=== PATIENT | female | born 1960 | race Caucasian/White ===

== ENCOUNTER → 2016-06-26 | Outpatient (CLI) | payer BC, OTHER ==
[~2016-06-26] MED LIST: AZEL0.055 OP; BUPR-83 PO; CLON0.5T3 PO; FOLI1TAB7 PO; LEVO75TA5 PO; MODA1TAB PO; VENL150C PO; VNTHFA/IN INH
[2016-06-26 12:57] LABS: ALT/SGPT 23 U/L (12-78); BASO % 0.9 %; BASO ABS # 0.07 K/uL (0-0.2); BLOOD UREA NITROGEN 15 mg/dl (7-18); BUN/CREATININE RATIO 22.5 (10-20); C-REACTIVE PROTEIN 0.32 mg/dl (0-0.29); CALCIUM 8.8 mg/dl (8.5-10.1); CARBON DIOXIDE 31 mmol/L (21-32); CHLORIDE 105 mmol/L (98-107); COMPLETE YES; CREATININE 0.68 mg/dl (0.60-1.20); EOS % 4.7 %; GLUCOSE 82 mg/dl (70-99); HEMATOCRIT 41.8 % (37-47); IG% 0.1 %; LYMPH % 27.8 %; LYMPH ABS # 2.08 K/uL (1.2-3.4); MEAN CELL VOLUME 89.1 fL (80-100); MEAN CORPUSCULAR HEMOGLOBIN 30.7 pg (25-34); MEAN CORPUSCULAR HGB CONC 34.4 g/dl (32-36); MEAN PLATELET VOLUME 11.2 fL (7.4-10.4); MONO % 7.4 %; NEUT % 59.1 %; PLATELET COUNT 204 K/uL (130-400); POTASSIUM 3.6 mmol/L (3.5-5.1); RED BLOOD COUNT 4.69 M/uL (4.2-5.4); SODIUM 142 mmol/L (136-145); WHITE BLOOD COUNT 7.47 K/uL (4.8-10.8)
[2016-06-26 13:07] LABS: ALB/GLOB RATIO 0.9 (0.9-2); ALKALINE PHOSPHATASE 99 U/L (45-117); AST/SGOT 21 U/L (15-37)
== END | disposition home or self-care (01) ==
LOC: C.LABMFLN 09:40
PROVIDERS: ATTEND Family Medicine
DX: G47.419 Narcolepsy without cataplexy (principal)

== ENCOUNTER → 2016-06-28 | Outpatient (CLI) | payer BC, OTHER ==
--- NOTE | 2016-06-28 13:57 | DIAGNOSTIC IMAGING REPORT ---
CHEST 2 VIEWS ROUTINE CLINICAL HISTORY: Shortness of breath, cough, dyspnea on exertion. Wheezing. COMPARISON STUDY: No previous studies for comparison. FINDINGS: There is a single spinal hussain. There is a scoliosis. The heart is normal in size. There is no failure. There is no focal pulmonary consolidation. No pleural effusions are visualized.[ IMPRESSION: No active disease in the chest. Electronically signed by: Kadeem Cowart M.D. 06/28/2016 1:56 PM Dictated Date/Time: 06/28/2016 1:55 PM
--- NOTE | 2016-07-05 09:42 | PULMONARY FUNCTION TEST ---
INTERPRETATION: The spirometry reveals mild to moderate obstruction with no change in the airflow with the use of albuterol.
== END | disposition home or self-care (01) ==
LOC: C.RC 13:29
PROVIDERS: ATTEND Family Medicine
DX: F17.200 Nicotine dependence, unspecified, uncomplicated (principal); R06.09 Other forms of dyspnea

== ENCOUNTER → 2016-07-02 | Outpatient (CLI) | payer BC, OTHER | END | disposition home or self-care (01) | LOC: C.LABMFLN 09:40 | PROVIDERS: ATTEND Family Medicine | DX: G47.419 Narcolepsy without cataplexy (principal) ==

== ENCOUNTER 2016-07-04 11:03 | Emergency (ER) | payer BC, OTHER ==
[~2016-07-04] VITALS: Ht 175.3 cm; Wt 81.3 kg
[2016-07-04 11:11] VITALS: TEMP 36.8; Ht 175.3 cm; Wt 81.3 kg
[2016-07-04] MEDS ORDERED: ASPIRIN 324 MG CHEW PO STA (11:28)
[2016-07-04] MEDS ORDERED: LEVO75TA5 PO (11:35)
[2016-07-04] MEDS ORDERED: CLON0.5T3 PO (11:35)
[2016-07-04] MEDS ORDERED: MODA1TAB PO (11:35)
[2016-07-04] MEDS ORDERED: VENL150C PO (11:35)
[2016-07-04] MEDS ORDERED: FOLI1TAB7 PO (11:35)
[2016-07-04] MEDS ORDERED: AZEL0.055 OP (11:45)
[2016-07-04 11:55] LABS: BASO % 1.1 %; BASO ABS # 0.08 K/uL (0-0.2); COMPLETE YES; EOS % 4.8 %; HEMATOCRIT 39.9 % (37-47); IG% 0.1 %; LYMPH % 27.1 %; LYMPH ABS # 1.96 K/uL (1.2-3.4); MEAN CELL VOLUME 86.9 fL (80-100); MEAN CORPUSCULAR HEMOGLOBIN 30.1 pg (25-34); MEAN CORPUSCULAR HGB CONC 34.6 g/dl (32-36); MEAN PLATELET VOLUME 10.8 fL (7.4-10.4); MONO % 7.6 %; NEUT % 59.3 %; PLATELET COUNT 207 K/uL (130-400); RED BLOOD COUNT 4.59 M/uL (4.2-5.4); WHITE BLOOD COUNT 7.22 K/uL (4.8-10.8)
[2016-07-04 12:05] LABS: INR 0.9 (0.9-1.1); PROTHROMBIN TIME (PATIENT) 9.9 SECONDS (9.0-12.0)
[2016-07-04 12:13] LABS: ALT/SGPT 19 U/L (12-78); BLOOD UREA NITROGEN 14 mg/dl (7-18); BUN/CREATININE RATIO 20.3 (10-20); CARBON DIOXIDE 30 mmol/L (21-32); CHLORIDE 106 mmol/L (98-107); GLUCOSE 83 mg/dl (70-99); POTASSIUM 3.7 mmol/L (3.5-5.1); SODIUM 142 mmol/L (136-145)
[2016-07-04] MEDS ORDERED: OPTIRAY 320 IV PRN (12:15)
[2016-07-04 12:16] LABS: ALKALINE PHOSPHATASE 95 U/L (45-117); AST/SGOT 18 U/L (15-37)
--- NOTE | 2016-07-04 12:53 | DIAGNOSTIC IMAGING REPORT ---
CT HEAD WITHOUT CONTRAST (CT) CLINICAL HISTORY: speech difficulty, dizziness COMPARISON STUDY: No previous studies for comparison. TECHNIQUE: Axial CT of the brain is performed from the vertex to the skull base. IV contrast was not administered for this examination. CT DOSE: 1153.77 mGy.cm FINDINGS: No intra or extra-axial mass lesions are visualized. There is no CT evidence of acute cortical infarction. There is no evidence of midline shift. There is no acute hemorrhage. No calvarial fractures are visualized. There is no evidence of pathologic ventricular dilatation. There is opacification of a single left-sided ethmoid air cell IMPRESSION: Opacified left ethmoid air cell. Otherwise normal noncontrast head CT for age. Electronically signed by: Kadeem Cowart M.D. 07/04/2016 12:52 PM Dictated Date/Time: 07/04/2016 12:51 PM
--- NOTE | 2016-07-04 12:56 | DIAGNOSTIC IMAGING REPORT ---
CHEST CTA for PULMONARY ARTERIES CT DOSE: HISTORY: Chest pain dyspnea TECHNIQUE: Multiaxial CT images of the chest were performed following the intravenous administration of contrast to evaluate the pulmonary arteries. Maximal intensity projection images were also obtained. COMPARISON STUDY: None. FINDINGS: There is a normal caliber thoracic aorta with no evidence for dissection. There is no evidence for pulmonary embolus. No pleural effusions. No pneumothorax. The liver and spleen are unremarkable. No mediastinal or hilar lymphadenopathy. The central airways are patent. The lungs are clear. Minimal bibasilar dependent atelectatic change. Postoperative changes to the thoracic spine. Minimal apical scarring bilaterally. IMPRESSION: No evidence for pulmonary embolus. Lungs are clear. Electronically signed by: Govind Hercules M.D. 07/04/2016 12:55 PM Dictated Date/Time: 07/04/2016 12:51 PM
--- NOTE | 2016-07-04 13:13 | EMERGENCY ROOM VISIT NOTE ---
History First contact with patient: 11:10 Chief Complaint: CHEST PAIN Stated Complaint: CHEST PAIN/PRESSURE, SOB, DIZZY Nursing Triage Summary: Pt came into today because she has been experincing chest pain for the past week. Pt states the pain is a squeezing and about a 4 out of 10 on pain scale. Pt has seen her PCP for the chest pain. Pt states that she just does not feel right. Within the last couple of days the pt has experinced pain in her jaw, shortness of breath with exertion and nausea. Pt also states that she has had several near syncopal episodes. History of Present Illness The patient is a 55 year old female who presents to the Emergency Room with complaints of chest pain times one week. The patient states that she has had chest pain and "doesn't feel right" for the past one week. She reports that the pain is in the left side of the chest and radiates into the back. Yesterday , the pain radiated into her neck and jaw bilaterally. She states the pain is not associated with exertion. She has a dull pain at baseline which worsens to a sharp pain at times. The patient does report shortness of breath associated with chest pain. She also reports feeling lightheaded this morning. She has not had any syncopal episodes. The patient was seen by her primary care provider one week ago because she "wasn't feeling right" and states that they did several blood tests. Her TSH was found to be 8.9 and she was started on levothyroxine. The patient also had testing for heavy metals in her urine, as she has a spinal rods for scoliosis. She also reports a history of narcolepsy and states that her primary care provider increased her dose of modafinil. The patient does report a history of angina and mitral valve prolapse with moderate regurgitation. She previously took Lopressor but this was stopped due to hypotension. She reports that she did complete cardiac rehabilitation. The patient reports a family history of heart disease, with her mother receiving a bypass in her 60s. She does report that her son and brother both have clotting disorders. The patient is a smoker. She denies any history of hypertension or high cholesterol. She denies any recent long travel or estrogen use. She denies any cough, fevers, recent illness, nausea or vomiting. Review of Systems A complete 10-point Review of Systems was discussed with the patient, with pertinent positives and negatives listed in the History of Present Illness. All remaining Review of Systems questions can be considered negative unless otherwise specified. Social History Smoking Status: Current Every Day Smoker Current/Historical Medications Scheduled Azelastine Hcl (Ophth) (Azelastine Hcl), 2 DROPS OP BID Clonazepam (Klonopin), 0.5 MG PO HS Folic Acid (Folvite), 1 MG PO DAILY Levothyroxine Sodium (Levothyroxine Sodium), 1 TAB PO DAILY Modafinil (Provigil), 200 MG PO DAILY Venlafaxine Hcl (Effexor Xr), 1 CAP PO DAILY Allergies Coded Allergies: Celecoxib (Unverified Adverse Reaction, Intermediate, NAUSEA/BECOMES FLUSH /DIZZY, 07/04/16) Codeine (Unverified Adverse Reaction, Intermediate, HYLUSONATES, 07/04/16) Naproxen (Unverified Adverse Reaction, Intermediate, UPSETS STOMACHE, ) Acetaminophen (Unverified Adverse Reaction, Unknown, UPSETS STOMACHE, ) Hydrocodone (Unverified Adverse Reaction, Unknown, UPSETS STOMACHE, 07/04/16 ) Physical Exam Vital Signs Date Time Temp Pulse Resp B/P Pulse Ox O2 Delivery O2 Flow Rate FiO2 07/04/16 16:41 99 20 142/88 97 07/04/16 13:02 59 20 133/93 99 Room Air 07/04/16 11:22 72 07/04/16 11:16 98 Room Air 07/04/16 11:11 36.8 68 18 159/96 99 Room Air Physical Exam VITALS: Vitals are noted on the nurse's note and reviewed by myself. Vital signs stable. GENERAL: This is a 55-year-old female, in no acute distress, nondiaphoretic, well-developed well-nourished. SKIN: The skin was without rashes, erythema, edema, or bruising. There is no tenting of the skin. Capillary reflex less than 2 seconds. HEAD: Normocephalic atraumatic. EARS: External auditory canals clear, tympanic membranes pearly mansfield without erythema or effusion bilaterally. EYES: Pupils equal round and reactive to light and accommodation. NOSE: Patent, turbinates without inflammation or discharge. MOUTH: Mucous membranes moist. Tonsils are not enlarged. Pharynx without erythema or exudate. NECK: Supple without nuchal rigidity. No lymphadenopathy. HEART: Regular rate and rhythm without murmurs gallops or rubs. LUNGS: Clear to auscultation bilaterally without wheezes, rales or rhonchi. No retractions or accessory muscle use. ABDOMEN: Positive bowel sounds x 4. Soft, nontender, without masses or organomegaly. NEURO: Patient was alert and oriented to person place and time. Medical Decision & Procedures ER Provider Diagnostic Interpretation: CHEST ONE VIEW PORTABLE FINDINGS: There is a thoracic scoliosis. There is a spinal hussain present. There is no failure. There is no focal pulmonary consolidation. The heart is within normal limits size. There is no pneumothorax. No pleural effusions are visualized.[ IMPRESSION: No active disease in the chest. CT HEAD WITHOUT CONTRAST (CT) FINDINGS: No intra or extra-axial mass lesions are visualized. There is no CT evidence of acute cortical infarction. There is no evidence of midline shift. There is no acute hemorrhage. No calvarial fractures are visualized. There is no evidence of pathologic ventricular dilatation. There is opacification of a single left-sided ethmoid air cell IMPRESSION: Opacified left ethmoid air cell. Otherwise normal noncontrast head CT for age. CHEST CTA for PULMONARY ARTERIES FINDINGS: There is a normal caliber thoracic aorta with no evidence for dissection. There is no evidence for pulmonary embolus. No pleural effusions. No pneumothorax. The liver and spleen are unremarkable. No mediastinal or hilar lymphadenopathy. The central airways are patent. The lungs are clear. Minimal bibasilar dependent atelectatic change. Postoperative changes to the thoracic spine. Minimal apical scarring bilaterally. IMPRESSION: No evidence for pulmonary embolus. Lungs are clear. Laboratory Results 07/04/16 11:40 Red Blood Count 4.59, Mean Corpuscular Volume 86.9, Mean Corpuscular Hemoglobin 30.1, Mean Corpuscular Hemoglobin Concent 34.6, Mean Platelet Volume 10.8, Neutrophils (%) (Auto) 59.3, Lymphocytes (%) (Auto) 27.1, Monocytes (%) (Auto) 7.6, Eosinophils (%) (Auto) 4.8, Basophils (%) (Auto) 1.1, Neutrophils # (Auto) 4.27, Lymphocytes # (Auto) 1.96, Monocytes # (Auto) 0.55, Eosinophils # (Auto) 0.35, Basophils # (Auto) 0.08 07/04/16 11:40 Test 07/04/16 11:40 07/04/16 11:45 White Blood Count 7.22 K/uL (4.8-10.8) Red Blood Count 4.59 M/uL (4.2-5.4) Hemoglobin 13.8 g/dL (12.0-16.0) Hematocrit 39.9 % (37-47) Mean Corpuscular Volume 86.9 fL (80-100) Mean Corpuscular Hemoglobin 30.1 pg (25-34) Mean Corpuscular Hemoglobin Concent 34.6 g/dl (32-36) Platelet Count 207 K/uL (130-400) Mean Platelet Volume 10.8 fL (7.4-10.4) Neutrophils (%) (Auto) 59.3 % Lymphocytes (%) (Auto) 27.1 % Monocytes (%) (Auto) 7.6 % Eosinophils (%) (Auto) 4.8 % Basophils (%) (Auto) 1.1 % Neutrophils # (Auto) 4.27 K/uL (1.4-6.5) Lymphocytes # (Auto) 1.96 K/uL (1.2-3.4) Monocytes # (Auto) 0.55 K/uL (0.11-0.59) Eosinophils # (Auto) 0.35 K/uL (0-0.5) Basophils # (Auto) 0.08 K/uL (0-0.2) RDW Standard Deviation 43.9 fL (36.4-46.3) RDW Coefficient of Variation 13.8 % (11.5-14.5) Immature Granulocyte % (Auto) 0.1 % Immature Granulocyte # (Auto) 0.01 K/uL (0.00-0.02) Prothrombin Time 9.9 SECONDS (9.0-12.0) Prothromb Time International Ratio 0.9 (0.9-1.1) Activated Partial Thromboplast Time 25.9 SECONDS (21.0-31.0) Partial Thromboplastin Ratio 1.0 Anion Gap 6.0 mmol/L (3-11) Est Creatinine Clear Calc Drug Dose 104.8 ml/min Estimated GFR () 113.8 Estimated GFR (Non- 98.2 BUN/Creatinine Ratio 20.3 (10-20) Calcium Level 9.0 mg/dl (8.5-10.1) Total Bilirubin 0.3 mg/dl (0.2-1) Direct Bilirubin < 0.1 mg/dl (0-0.2) Aspartate Amino Transf (AST/SGOT) 18 U/L (15-37) Alanine Aminotransferase (ALT/SGPT) 19 U/L (12-78) Alkaline Phosphatase 95 U/L (45-117) Total Protein 6.3 gm/dl (6.4-8.2) Albumin 3.1 gm/dl (3.4-5.0) Bedside D-Dimer > 450 ng/mlFEU (0-450) Bedside Troponin I 0.000 ng/ml (0-0.045) Medications Administered Medications (Trade) Dose Ordered Sig/Lindsey Route Start Time Stop Time Status Last Admin Dose Admin Aspirin (Aspirin Chew) 324 mg NOW STAT PO 07/04/16 11:28 07/04/16 11:31 DC 07/04/16 11:58 324 MG ECG Indication: chest pain Rate (beats per minute): 65 Rhythm: normal sinus Findings: no acute ischemic change, no ectopy Comparison ECG Date: no prior available Medical Decision Differential diagnosis includes acute coronary syndrome, pulmonary embolism, pneumothorax, pericarditis, myocarditis, endocarditis, anxiety, musculoskeletal pain, GERD, costochondritis, among others. The patient was evaluated as above. Labs were drawn and IV access was obtained. Imaging studies were performed and read by radiology as above. The patient was medicated with 324 mg aspirin. The patient was reassessed multiple times during their stay in the emergency department and remained in stable condition. The patient is a 55-year-old female who presents today complaining of intermittent chest pain. Labs revealed no leukocytosis, anemia or concerning electrolyte abnormalities. Troponin was not elevated. D-dimer was found to be elevated. CT of the chest was performed and showed no evidence of pulmonary embolism. CT of the head was also performed given the patient's concern about slow speech and feeling foggy. This was also negative for any acute findings. EKG showed a normal sinus rhythm without evidence of ischemia. I did contact Dr. Dolly Peralta cardiology, who agreed to perform a stress test. This was performed with no concerning findings. The patient's symptoms are likely secondary to her recently diagnosed thyroid disorder, but she will need close follow-up with her primary care provider. She was instructed to return if she has any worsening of her condition or new/concerning symptoms. Based on the patient's presentation, lab results, and imaging studies, I feel the patient is stable for outpatient treatment. The patient's case was reviewed with Dr. Ruiz, ED attending physician, who agreed with my assessment and treatment plan. Discharge instructions were reviewed with the patient. The patient verbalized understanding of my assessment and treatment plan and was discharged home in good condition. Impression Primary Impression: Precordial chest pain Departure Information Dispostion Home / Self-Care Condition GOOD Referrals Jose Son M.D. (PCP) Patient Instructions My [facility] Additional Instructions Call the primary care provider to schedule a follow-up appointment within 3-4 days for further evaluation. Continue your home medications as prescribed. Rest and drink plenty of fluids. Return to the emergency department with any new/concerning symptoms.
--- NOTE | 2016-07-04 13:16 | DIAGNOSTIC IMAGING REPORT ---
CHEST ONE VIEW PORTABLE CLINICAL HISTORY: Atypical chest pain and pressure COMPARISON STUDY: 06/28/2016 FINDINGS: There is a thoracic scoliosis. There is a spinal hussain present. There is no failure. There is no focal pulmonary consolidation. The heart is within normal limits size. There is no pneumothorax. No pleural effusions are visualized.[ IMPRESSION: No active disease in the chest. Electronically signed by: Kadeem Cowart M.D. 07/04/2016 1:14 PM Dictated Date/Time: 07/04/2016 1:14 PM
[2016-07-04 16:41] VITALS: BP 142/88; PULSE 99; O2SAT 97
--- NOTE | 2016-07-04 16:51 | EXERCISE STRESS ECHO ---
*NOTICE TO RECEIVING LIBERTARIAN AGENCY This information is strictly Confidential and protected under [place] law. [place] law prohibits you from making any further disclosure of this information unless further disclosure is expressly permitted by the written consent of the person to whom it pertains or is authorized by law. A general authorization for the release of medical or other information is not sufficient for this purpose. Hospital accepts no responsibility if the information is made available to any other person, INCLUDING THE PATIENT. Interpretation Summary * Name: JEFE ESPINOZA Study Date: 07/04/2016 02:35 PM BP: 129/83 mmHg * Patient Location: [facility] HR: 61 * : 1960 (M/d/yyyy) Gender: Female Height: 69 in * Age: 55 yrs Ethnicity: [place] Weight: 179 lb * Ordering Physician: Claudia Leblanc * Referring Physician: Self, Referred * Performed By: Leanne Mendoza RCS * * Reason For Study: CHEST PAIN * BSA: 2.0 m2 * -- Conclusions -- * Normal stress echocardiogram at 10.1 METS and a peak heart rate of 92% predicted maximum. * No exercise induced chest pain. * No ECG changes. * Baseline echocardiogram notes normal left ventricular systolic function and no wall motion abnormalities. Procedure Details * ECHOEX, CPT #42102 Left Ventricle * Left ventricular systolic function is normal. * Resting wall motion: Normal. Stress wall motion: Appropriate increase in Left ventricular systolic function and decrease in cavity size. No stress induced segmental wall motion abnormalities. Stress Parameters * Normal baseline electrocardiogram. * Stress ECG: No ST changes. No arrhythmias. * The stress portion of this study was personally supervised by the undersigned interpreting physician. * Rest heart rate was '61' BPM. * Rest blood pressure was '129/83' * Maximum heart rate achieved was 153 bpm. * Maximum heart rate was 92 % of maximum age-predicted heart rate. * Maximum blood pressure was '213/120' * Total exercise time was '08:26' * Maximum exercise MET level achieved was '10.10' METS * Maximum treadmill speed was '3.40' miles per hour. * Maximum treadmill elevation was '14.00'% grade.
[2016-09-11] MEDS ORDERED: BUPR-83 PO (07:42)
[2016-09-11] MEDS ORDERED: VNTHFA/IN INH (07:47)
== END 2016-07-04 16:42 | disposition home or self-care (01) ==
LOC: C.EDB 11:05 → C.EDC 16:42
DX: R07.9 Chest pain, unspecified (principal); F17.200 Nicotine dependence, unspecified, uncomplicated

== ENCOUNTER → 2016-07-30 | Outpatient (CLI) | payer BC, OTHER ==
--- NOTE | 2016-08-01 08:26 | MAMMOGRAPHY REPORT ---
BILATERAL DIGITAL SCREENING MAMMOGRAM TOMOSYNTHESIS WITH CAD: 07/30/2016 CLINICAL HISTORY: Routine screening. TECHNIQUE: Breast tomosynthesis in addition to standard 2D mammography was performed. Current study was also evaluated with a Computer Aided Detection (CAD) system. COMPARISON: Comparison is made to exams dated: 11/08/2014 mammogram, 10/09/2013 mammogram, 08/19/2012 mammogram, and 08/08/2012 mammogram - [facility]. BREAST COMPOSITION: There are scattered areas of fibroglandular density in both breasts. FINDINGS: There is a stable metallic biopsy marker in the upper outer quadrant of the right breast. Stable clustered micro-calcifications in the right upper outer quadrant and left anterior breast. No suspicious mass, architectural distortion or cluster of new, suspicious microcalcifications is s een. IMPRESSION: ACR BI-RADS CATEGORY 1: NEGATIVE There is no mammographic evidence of malignancy. A 1 year screening mammogram is recommended. The p atient will receive written notification of the results. Approximately 10% of breast cancers are not detected with mammography. A negative mammographic repor t should not delay biopsy if a clinically suggestive mass is present. Tiff Elizondo M.D. ay/:07/31/2016 19:00:51 [employer]: Tammy HILTON(R)(M), [facility] letter sent: Normal 1/2 BI-RADS Code: ACR BI-RADS Category 1: Negative
== END | disposition home or self-care (01) ==
LOC: C.MAMM 08:55
PROVIDERS: ATTEND Psychiatry & Neurology Child & Adolescent Psychiatry
DX: Z12.31 Encounter for screening mammogram for malignant neoplasm of breast (principal)

== ENCOUNTER → 2016-09-12 | Day surgery (SDC) | payer BC, OTHER ==
[2016-09-11 07:43] VITALS: Ht 175.3 cm; Wt 81.8 kg
[~2016-09-12] VITALS: Ht 175.3 cm; Wt 81.8 kg
[~2016-09-12] MED LIST changes: -AZEL0.055 OP; +LIDOCAINE HCL 2% 2 ML VIAL (20MG/ML) ONE; +PROPOFOL IV EMULSION 10 MG/ML 20 ML VIAL IV ONE
--- NOTE | 2016-09-12 11:48 | Endo History and Physical ---
History & Physical Date of Service: Sep 12, 2016. Chief Complaint: Abdominal pain and constipation Referring Physician: Dr Son History of Present Illness 56 yo CF who presents for colonoscopy secondary to abdominal pain and constipation. Past Surgical History Hx Cardiac Surgery: Yes (CARDIAC CATH NO STENTS-10 YRS AGO) Hx Internal Defibrillator: No Hx Pacemaker: No Hx Abdominal Surgery: Yes (HYSTERECTOMY,HERNIA) Hx of Implantable Prosthesis: No Hx Post-Op Nausea and Vomiting: No Hx Cancer Surgery: Yes (CONE CERVICAL LASER) Hx Orthopedic: Yes (GOINS RYNE BACK) Hx Urinary Tract Surgery: No Family History Colon CA, Esophogeal CA, Polyp Social History Smoking Status: Current Every Day Smoker Hx Substance Use: No Hx Alcohol Use: Yes (RARE BEER) Allergies Coded Allergies: Celecoxib (Unverified Adverse Reaction, Intermediate, NAUSEA/BECOMES FLUSH /DIZZY, 09/11/16) Codeine (Unverified Adverse Reaction, Intermediate, HALLUCINATIONS, ) Naproxen (Unverified Adverse Reaction, Intermediate, UPSETS STOMACHE, 09/11) Acetaminophen (Unverified Adverse Reaction, Unknown, UPSETS STOMACHE, 09/11) Hydrocodone (Unverified Adverse Reaction, Unknown, UPSETS STOMACHE, ) Current Medications Reported Home Medications Medications Dose Route/Sig Max Daily Dose Days Date Category Ventolin Hfa (Albuterol) 200 Puffs/75326 Mcg Aers 2-4 Puffs INH Q6H PRN 09/11/16 Reported Wellbutrin (Bupropion HCl) 100 Mg Tab 100 Mg PO QPM 09/11/16 Reported Klonopin (Clonazepam) 0.5 Mg Tab 0.5 Mg PO HS PRN 07/04/16 Reported Provigil (Modafinil) 200 Mg Tab 200 Mg PO NOON 07/04/16 Reported Levothyroxine Sodium 75 Mcg Tab 1 Tab PO QAM 90 07/04/16 Reported Folvite (Folic Acid) 1 Mg Tab 1 Mg PO QAM 07/04/16 Reported Effexor Xr (Venlafaxine Hcl) 150 Mg Cap 1 Cap PO QAM 30 07/04/16 Reported Vital Signs Weight (Kilograms): 81.82 Height (Feet): 5 Height (Inches): 9 Date Time Temp Pulse Resp B/P (MAP) Pulse Ox O2 Delivery O2 Flow Rate FiO2 09/12/16 11:38 36.6 85 20 138/81 (100) 96 Room Air Physical Exam General Appearance: WD/WN, no apparent distress Respiratory/Chest: Auscultation: breath sounds normal Cardiovascular: Heart Auscultation: RRR Abdomen: Bowel Sounds: normal Inspection & Palpation: soft, non-distended, no tenderness, guarding & rebound Assessment and Plan Assessment: 56 yo CF who presents for colonoscopy secondary to abdominal pain and constipation. Plan: Proceed with colonoscopy.
--- NOTE | 2016-09-12 12:23 | GI REPORT ---
Procedure Date: 09/12/2016 11:48 AM Procedure: Colonoscopy Indications: Generalized abdominal pain, Constipation Medicines: Monitored Anesthesia Care Complications: No immediate complications. Estimated Blood Loss: Estimated blood loss: none. Procedure: Pre-Anesthesia Assessment: - Prior to the procedure, a History and Physical was performed, and patient medications and allergies were reviewed. The patient's tolerance of previous anesthesia was also reviewed. The risks and benefits of the procedure and the sedation options and risks were discussed with the patient. All questions were answered, and informed consent was obtained. Prior Anticoagulants: The patient has taken no previous anticoagulant or antiplatelet agents. ASA Grade Assessment: II - A patient with mild systemic disease. After reviewing the risks and benefits, the patient was deemed in satisfactory condition to undergo the procedure. After I obtained informed consent, the scope was passed under direct vision. Throughout the procedure, the patient's blood pressure, pulse, and oxygen saturations were monitored continuously. The Scope was introduced through the anus and advanced to the terminal ileum. The colonoscopy was performed without difficulty. The patient tolerated the procedure well. The quality of the bowel preparation was good. The terminal ileum, ileocecal valve, appendiceal orifice, and rectum were photographed. Findings: Three sessile polyps were found in the descending colon and in the ascending colon. The polyps were 4 to 6 mm in size. These polyps were removed with a hot snare. Resection and retrieval were complete. Multiple small-mouthed diverticula were found in the sigmoid colon. Non-bleeding internal hemorrhoids were found during retroflexion. The hemorrhoids were small. Impression: - Three 4 to 6 mm polyps in the descending colon and in the ascending colon, removed with a hot snare. Resected and retrieved. - Diverticulosis in the sigmoid colon. - Non-bleeding internal hemorrhoids. Recommendation: - Resume previous diet. - Continue present medications. - Repeat colonoscopy for surveillance based on pathology results. - Return to primary care physician as previously scheduled. Bright Velasquez, DO 09/12/2016 12:22:43 PM This report has been signed electronically. Note Initiated On: 09/12/2016 11:48 AM I attest to the content of the Intraoperative Record and orders documented therein, exceptions below
--- NOTE | 2016-09-12 12:23 | Discharge Instructions ---
Endoscopy Patient Instructions Date / Procedure(s) Performed Sep 12, 2016. Colonoscopy Allergy Information Coded Allergies: Celecoxib (Unverified Adverse Reaction, Intermediate, NAUSEA/BECOMES FLUSH /DIZZY, 09/11/16) Codeine (Unverified Adverse Reaction, Intermediate, HALLUCINATIONS, ) Naproxen (Unverified Adverse Reaction, Intermediate, UPSETS STOMACHE, 09/11) Acetaminophen (Unverified Adverse Reaction, Unknown, UPSETS STOMACHE, 09/11) Hydrocodone (Unverified Adverse Reaction, Unknown, UPSETS STOMACHE, ) Discharge Date / Findings Sep 12, 2016. Colon polyps Diverticulosis Internal hemorrhoids Provider Instructions Activity Restrictions - No exercising or heavy lifting for 24 hours. - Do not drink alcohol the day of the procedure. - Do not drive a car or operate machinery until the day after the procedure. - Do not make any important decisions or sign important papers in 24 hours after the procedure. Following Day: - Return to full activity which may include returning to work/school. Diet Start your diet with liquids and light foods (jello, soup, juice, toast). Then eat your usual diet if not nauseated. Treatment For Common After Affects For mild abdominal pain, bloating, or excessive gas: - Rest - Eat lightly - Lie on right side Follow-Up Information Follow-up with Dr Son as scheduled Anesthesia Information What You Should Know You have had a procedure that required some medicine to reduce anxiety and discomfort. This treatment is called moderate sedation. After receiving the treatment, you may be sleepy, but you will be able to breathe on your own. The effects of the treatment may last for several hours. Follow these instructions along with Activity/Diet recommendations noted above: * Do NOT do anything where dizziness or clumsiness would be dangerous. * Rest quietly at home today, then you can be up and about tomorrow. * Have a responsible person stay with you the rest of today. * You may have had an I.V. today. If so, you may take the dressing off later today. Recommendations Call your doctor if: * Trouble breathing * Continuous vomiting for more than 24 hours * Temperature above 101 degrees * Severe abdominal pain or bloating * Pain not relieved by pain medicine ordered * There is increased drainage or redness from any incision * A large amount of rectal bleeding greater than 2-3 tablespoons. (If you had a polyp/s removed or have hemorrhoids, a small amount of blood - from the rectum is to be expected.) * You have any unanswered questions or concerns. IN THE EVENT OF A SERIOUS EMERGENCY, GO TO THE NEAREST EMERGENCY ROOM Your discharge instructions were prepared by provider Bright Velasquez. Patient Instructions Signature Page Sierra Kincaid Patient (or Guardian) Signature/Date: I have read and understand the instructions given to me by my caregivers. Caregiver/RN/Doctor Signature/Date: The above-named patient and/or guardian has received patient instructions on this date. + Original Patient Signature Page (only) stays with chart. Please make copy for patient.
--- NOTE | 2016-09-12 12:36 | Anesthesiology Progress Note ---
Anesthesia Post Op Note Date & Time Sep 12, 2016 at 12:36 Vital Signs Vital Signs Past 12 Hours Date Time Temp Pulse Resp B/P (MAP) Pulse Ox O2 Delivery O2 Flow Rate FiO2 09/12/16 12:20 81 16 117/73 (88) 96 Room Air 09/12/16 11:38 36.6 85 20 138/81 (100) 96 Room Air Notes Mental Status: alert / awake / arousable, participated in evaluation Pt Amnestic to Procedure: Yes Nausea / Vomiting: adequately controlled Pain: adequately controlled Airway Patency, RR, SpO2: stable & adequate BP & HR: stable & adequate Hydration State: stable & adequate Anesthetic Complications: no major complications apparent
[2016-09-12 12:50] VITALS: BP 136/85; PULSE 68; O2SAT 98
== END | disposition home or self-care (01) ==
LOC: C.GI 11:17
PROVIDERS: ATTEND Internal Medicine
DX: R10.9 Unspecified abdominal pain (principal); D12.2 Benign neoplasm of ascending colon; D12.4 Benign neoplasm of descending colon; K59.00 Constipation, unspecified; Z80.0 Family history of malignant neoplasm of digestive organs; F17.200 Nicotine dependence, unspecified, uncomplicated; K64.8 Other hemorrhoids; K57.30 Diverticulosis of large intestine without perforation or abscess without bleeding

== ENCOUNTER → 2016-12-05 | Outpatient (CLI) | payer BC, OTHER ==
[~2016-12-05] MED LIST changes: -LIDOCAINE HCL 2% 2 ML VIAL (20MG/ML) ONE; -PROPOFOL IV EMULSION 10 MG/ML 20 ML VIAL IV ONE
[2016-12-05 14:21] LABS: THYROID STIMULATING HORMONE 2.02 uIu/ml (0.300-4.500)
== END | disposition home or self-care (01) ==
LOC: C.LABMFLN 09:04
PROVIDERS: ATTEND Family Medicine
DX: E03.9 Hypothyroidism, unspecified (principal)

== ENCOUNTER → 2017-01-03 | Outpatient (CLI) | payer BC, OTHER | END | disposition home or self-care (01) | LOC: C.LABMFLN 16:13 | PROVIDERS: ATTEND Physician Assistant | DX: J02.9 Acute pharyngitis, unspecified (principal) ==

== ENCOUNTER → 2017-03-06 | Outpatient (CLI) | payer BC, OTHER ==
[2017-03-06 13:14] LABS: BLOOD UREA NITROGEN 11 mg/dl (7-18); BUN/CREATININE RATIO 14.9 (10-20); CALCIUM 9.5 mg/dl (8.5-10.1); CARBON DIOXIDE 30 mmol/L (21-32); CHLORIDE 103 mmol/L (98-107); CREATININE 0.74 mg/dl (0.60-1.20); GLUCOSE 85 mg/dl (70-99); SODIUM 138 mmol/L (136-145)
== END | disposition home or self-care (01) ==
LOC: C.LABMFLN 08:51
PROVIDERS: ATTEND Family Medicine
DX: Z00.00 Encounter for general adult medical examination without abnormal findings (principal); Z11.59 Encounter for screening for other viral diseases; E03.9 Hypothyroidism, unspecified; I10 Essential (primary) hypertension

== ENCOUNTER → 2017-11-13 | Outpatient (CLI) | payer BC, OTHER ==
[~2017-11-13] MED LIST changes: +ACET-1256 PO; -CLON0.5T3 PO; +CLON0.5T9 PO; +FLUC200T PO; +FLUT0.15 INTNAS; -FOLI1TAB7 PO; +LISI-729 PO; +METO-157 PO; +MICO2CRE48 TOP; +PRLSR20 PO; +SODI1TAB17 PO; -VENL150C PO; +VENL150C2 PO
== END | disposition home or self-care (01) ==
LOC: C.PAPS 18:16
PROVIDERS: ATTEND Family Medicine
DX: Z01.419 Encounter for gynecological examination (general) (routine) without abnormal findings (principal); Z11.51 Encounter for screening for human papillomavirus (HPV); R87.616 Satisfactory cervical smear but lacking transformation zone; L29.2 Pruritus vulvae

== ENCOUNTER 2020-07-20 07:05 | Inpatient (IN) ==
--- NOTE | 2020-07-13 09:33 | Anesthesiology Consultation ---
Date of Service July 13, 2020 Assessment & Plan Chart Review Chart Review: Acceptable Risk for Surgery and Patient NOT seen in Pre Admission Testing Consults Requested none History Surgery Operation Date: 07/20/20 08:45 Proposed Procedures p Laparoscopic Partial Colectomy - Luis Fernando Berger DO, FACS Height/Weight Height: 5 ft 8 in Weight: 79.832 kg Allergies Allergy/AdvReac Type Severity Reaction Status Date / Time bupropion [From Wellbutrin] Allergy Intermediate agressive Verified 07/12/20 14:25 with high dose ropinirole Allergy Mild weakness/na Verified 07/12/20 14:25 usea tramadol Allergy Mild Nausea Verified 07/12/20 14:25 celecoxib AdvReac Intermediate NAUSEA/BECOMES Verified 07/12/20 14:25 FLUSH/DIZZY codeine AdvReac Intermediate HALLUCINATI Verified 07/12/20 14:25 ONS naproxen AdvReac Intermediate UPSETS Verified 07/12/20 14:25 STOMACH hydrocodone AdvReac Unknown UPSETS Verified 07/12/20 14:25 STOMACH Medications Home Medications Medication Instructions Recorded Confirmed Last Taken alendronate 70 mg PO WK 05/16/19 07/12/20 Unknown calcium carbonate-vitamin D3 1 tab PO QPM 05/16/19 07/12/20 07/09/20 17:00 [Calcium 600 + D(3)] albuterol sulfate 90 mcg/actuation 2 puff INH Q4H PRN #18 gm 02/23/20 07/12/20 07/05/20 aerosol inhaler bupropion HCl 100 mg PO QAM 06/30/20 07/12/20 07/10/20 08:00 cholecalciferol (vitamin D3) 100 mcg PO QAM 06/30/20 07/12/20 07/10/20 08:00 levothyroxine 75 mcg PO QAM 06/30/20 07/12/20 07/11/20 04:30 modafinil 100 mg PO QAM 06/30/20 07/12/20 07/10/20 08:00 venlafaxine 75 mg PO QAM 06/30/20 07/12/20 07/05/20 venlafaxine 150 mg PO QAM 06/30/20 07/12/20 07/05/20 erythromycin 500 mg tablet 500 mg PO TID #3 tab 07/12/20 07/12/20 Unknown metronidazole 500 mg tablet 500 mg PO TID #3 tab 07/12/20 07/12/20 Unknown Past Medical History Medical History Abdominal bloating Allergic rhinitis Anxiety Asthma SOB at times, inhaler prn Blood in stool Chronic back pain Current smoker Depression Diverticulosis Family history of colon cancer History of bronchitis Hypothyroidism Mitral valve prolapse syndrome 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, follows with PCP Myalgia Obstructive sleep apnea no device after sx Post-traumatic stress disorder Psoriasis of scalp Restless legs syndrome Sleep walking and eating Vitamin D deficiency Past Family History Family History Grandmother Myocardial infarction Heart disease Uncle Alcoholism Alcoholic cirrhosis Family hx of colon cancer Colorectal cancer Grandfather Alcoholism Lung disease Brother Cocaine dependence Depression Sister Depression Cancer Mother Laryngeal cancer Kidney disease Hypertension Family history of esophageal cancer Cancer Heart disease Father Lung cancer Family history of rectal cancer Rectosigmoid junction carcinoma Uncle Family hx of colon cancer Aunt Breast cancer Other No family history of adverse response to anesthesia Past Surgical History Surgical History Fusion of spine from neck to lumbar in 1977 History of bilateral tubal ligation History of breast biopsy benign History of cardiac cath roughly 25yrs ago--at [facility]--no stents History of colonoscopy with polypectomy History of dilatation and curettage History of endometrial ablation History of hip surgery removed bone from left to put into back for back sx History of hysterectomy (2009) History of inguinal hernia repair (2009) right History of mandibular surgery (2018) Dr. Black History of strabismus surgery History of tonsillectomy and adenoidectomy History of wisdom tooth extraction Social History Smoking Status: Current every day smoker tobacco type: cigarettes Smoking cigarettes per day: 1/2 ppd and trying to quit Do You Dip or Chew Tobacco: No Hx Alcohol Use: No Alcohol type: beer alcohol intake frequency: other Hx Substance Use: No substance use type: does not use Lab Results Anesthesia Preop Results Results Anesthesia Widget: WBC 11.21 K/uL (4.8-10.8) H 07/11/20 Hgb 14.5 g/dL (12.0-16.0) 07/11/20 Hct 42.2 % (37-47) 07/11/20 Plt 315 K/uL (130-400) 07/11/20 Na 142 mmol/L (136-145) 07/11/20 K 3.5 mmol/L (3.5-5.1) 07/11/20 Cl 108 mmol/L (98-107) H 07/11/20 CO2 28 mmol/L (21-32) 07/11/20 BUN 13 mg/dl (7-18) 07/11/20 Creat 0.74 mg/dl (0.6-1.2) 07/11/20 Glucose Level 85 mg/dl (70-99) 05/24/20 Fasting Glucose 105 mg/dl (70-99) H 07/11/20 Urine Color Yellow 05/24/20 Urine Appearance Clear (Clear) 05/24/20 Urine pH 6.5 (4.5-7.5) 05/24/20 Urine Specific [place] 1.007 (1.000-1.030) 05/24/20 Urine Protein Negative (Negative) 05/24/20 Urine Glucose (UA) Negative (Negative) 05/24/20 Urine Ketones Negative (Negative) 05/24/20 Urine Blood 1+ (Negative) H 05/24/20 Urine Nitrite Negative (Negative) 05/24/20 Urine Bilirubin Negative (Negative) 05/24/20 Urine Urobilinogen Negative (Negative) 05/24/20 Urine Leukocyte Esterase Negative (Negative) 05/24/20 Urine WBC (Auto) 0 /hpf (0-5) 05/24/20 Urine RBC (Auto) 0-4 /hpf (0-4) 05/24/20 Urine Hyaline Casts (Auto) 0 /lpf (0-5) 05/24/20 Urine Epithelial Cells (Auto) 5-10 /lpf (0-5) H 05/24/20 Urine Bacteria (Auto) Negative (Negative) 05/24/20 Testing Electrocardiogram Date: 07/12/20 Findings: + NSR @ Chest X-Ray Date: 07/12/20 Findings: + NAD emphysema
[~2020-07-20 07:05] MED LIST changes: -ACET-1256 PO; -BUPR-83 PO; -CLON0.5T9 PO; -FLUC200T PO; -FLUT0.15 INTNAS; +LACTATED RINGER'S 1,000 ML IV SCH; -LEVO75TA5 PO; -LISI-729 PO; -METO-157 PO; -MICO2CRE48 TOP; -MODA1TAB PO; -PRLSR20 PO; -SODI1TAB17 PO; -VENL150C2 PO; -VNTHFA/IN INH; +cefOXitin 2,000 MG in DEXTROSE 5% 50 ML IV SCH
[2020-07-20] MEDS ORDERED: LIDOCAINE HCL 2% 2 ML VIAL/AMP(20MG/ML) INFIL ONE (07:39)
[2020-07-20] MEDS ORDERED: ROCURONIUM BROMIDE 10 MG/ML 5 ML VIAL IV ONE ×4 (07:39→12:07)
[2020-07-20] MEDS ORDERED: fentaNYL citrate 100 MCG/2 ML VIAL ONE ×2 (07:39→10:39)
[2020-07-20] MEDS ORDERED: DEXAMETHASONE SOD INJ 4 MG/ML VIAL ONE (07:39)
[2020-07-20] MEDS ORDERED: ONDANSETRON INJ 2 MG/ML 2 ML VIAL ONE (07:39)
[2020-07-20] MEDS ORDERED: MIDAZOLAM HCL 1 MG/ML 2ML VIAL ONE (07:39)
[2020-07-20] MEDS ORDERED: GLYCOPYRROLATE 0.2 MG/ML VIAL ONE (07:39)
[2020-07-20] MEDS ORDERED: NEOSTIGMINE METHYLSULFATE 5 MG/5 ML SYR ONE (07:39)
[2020-07-20] MEDS ORDERED: PROPOFOL IV EMULSION 10 MG/ML 20 ML VIAL IV ONE ×2 (07:39→10:36)
[2020-07-20] MEDS ORDERED: ONDANSETRON INJ 2 MG/ML 2 ML VIAL IV PRN ×2 (08:34→15:07)
[2020-07-20] MEDS ORDERED: fentaNYL citrate 100 MCG/2 ML VIAL IV PRN (08:34)
[2020-07-20] MEDS ORDERED: ATROPINE SULFATE 0.1 MG/ML 10ML SYR IV PRN (08:34)
[2020-07-20] MEDS ORDERED: ePHEDrine sulfate 50 MG/ML AMP IV PRN (08:34)
[2020-07-20] MEDS ORDERED: HYDROmorphone INJ 1 MG/ML SYRINGE IV PRN (08:48)
--- NOTE | 2020-07-20 09:09 | History & Physical Bridge Note ---
Date of Service July 20, 2020 History & Physical Bridge Note I have examined the patient, reviewed the History & Physical and in the interval since the performance of the History & Physical I have noted the following changes of clinical significance: no changes noted
[2020-07-20] MEDS ORDERED: BUPIVACAINE LIPOSOME 1.3% 266 MG/20 ML VIAL ONE (09:17)
[2020-07-20] MEDS ORDERED: FAMOTIDINE/PF 20 MG/2 ML VIAL IV ONE (09:17)
[2020-07-20] MEDS ORDERED: BUPIVACAINE 0.5 % 5 MG/1 ML MPF 30ML VIAL ONE (09:17)
[2020-07-20] MEDS ORDERED: HYDROmorphone INJ 2 MG/ML SYR/VIAL ONE (10:57)
[2020-07-20] MEDS ORDERED: PROMETHAZINE HCL INJ 25 MG/ML 1 ML VIAL ONE (12:09)
[2020-07-20] MEDS ORDERED: diphenhydrAMINE 50 MG/ML VIAL ONE (12:09)
--- NOTE | 2020-07-20 13:38 | Post Operative Brief Note ---
PG Immediate Post Op with CF Date of Surgery July 20, 2020 Pre & Post Diagnosis Operation Date: 07/20/20 08:45 Pre-Op Diagnosis: Colon Tumor Post-Op Diagnosis: Colon Tumor I identified the patient and participated in the time-out.: Yes Procedure Operation Date: 07/20/20 08:45 Actual Procedures p Laparoscopic assisted transverse colectomy, laparoscopic mobilization splenic flexure, laparoscopic partial omentectomy.- Luis Fernando Berger DO, FACS Surgeon Luis Fernando Berger DO, FACS Reconnaissance Crewmember Oh Moore Estimated Blood Loss 25 Findings Consistent with Post-Op Diagnosis Tumor located in mid transverse colon. Mobilization of splenic flexure completed laparoscopically. Partial omentectomy performed. Mobilization of hepatic flexure performed laparoscopically. Wound protector placed and colon exteriorized, transverse colectomy performed using staplers. Mesentery divided using harmonic scalpel, high ligation of middle colic vascular pedicle performed. [id number] functional end-to-end anastomosis performed utilizing stapler and reinforced with Lembert sutures. Good blood flow to anastomosis, no evidence of leak, and no tension. Reentered laparoscopically after placing GelPort, anastomosis appeared healthy with no twisting, and no tension. Abdomen irrigated and hemostasis confirmed. Exparel mixed with Marcaine injected in fascia. Fascia closed with 0 PDS x2. Skin closed with brandy. Specimens Specimen Description: A: Transverse Colon Tumor Drains Chavez Catheter (inserted after induction of anesthesia by VINCENZO Workman without difficulty under supervision of Narendra Schultz RN) Anesthesia Type General Complications none Disposition Accompanied Patient To Recovery: No Disposition: Recovery Room
--- NOTE | 2020-07-20 14:21 | Operative Report ---
PG Post Operative Report Pre & Post Diagnosis Operation Date: 07/20/20 08:45 Pre-Op Diagnosis: Colon Tumor Post-Op Diagnosis: Colon Tumor I identified the patient and participated in the time-out.: Yes Procedure Operation Date: 07/20/20 08:45 Actual Procedures p Laparoscopic Assisted Transverse colectomy, Laparoscopic Mobilization of Splenic Flexure, Partial Omentectomy(Not Applicable) - Luis Fernando Berger DO, SAM Surgeon Luis Fernando Berger DO, SAM Fuel Pilot Engineer Oh Moore Estimated Blood Loss 25 Findings Consistent with Post-Op Diagnosis Tumor located in mid transverse colon. Mobilization of splenic flexure completed laparoscopically. Partial omentectomy performed. Mobilization of hepatic flexure performed laparoscopically. Wound protector placed and colon exteriorized, transverse colectomy performed using staplers. Mesentery divided using harmonic scalpel, high ligation of middle colic vascular pedicle performed. [id number] functional end-to-end anastomosis performed utilizing stapler and reinforced with Lembert sutures. Good blood flow to anastomosis, no evidence of leak, and no tension. Reentered laparoscopically after placing GelPort, anastomosis appeared healthy with no twisting, and no tension. Abdomen irrigated and hemostasis confirmed. Exparel mixed with Marcaine injected in fascia. Fascia closed with 0 PDS x2. Skin closed with brandy. 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 CT chest abdomen pelvis showed no evidence of metastasis. Plan for laparoscopic partial colectomy. The risks of the procedure were discussed, all questions were answered, and the patient agreed to proceed with surgery as planned. Description of Procedure The patient had an antibiotic infused bowel prep overnight. The patient was properly identified, consented, and taken to the operating room where she was placed in the low lithotomy position with arms tucked. General endotracheal anesthesia was induced. SCDs and a safety belt were placed. Preoperative antibiotics were administered. A Chavez catheter was placed. The patient's abdomen was prepped and draped in the standard sterile fashion. Surgical timeout was performed and all parties were in agreement that this was the correct patient and procedure to be performed and we continued as planned. A vertical midline infraumbilical incision was made with electrocautery and deepened down to the fascia with blunt dissection. The base of the umbilicus was grasped with a Destin. The Destin was elevated towards the ceiling and the fascia was incised with a knife. Stay sutures were placed on either side of the midline. The Jun trocar was then placed and the abdomen insufflated with carbon dioxide which the patient tolerated without incident. The laparoscope was inserted and the abdomen inspected. No damage from initial trocar placement was noted. No evidence of metastatic disease or other abnormalities were noted. The tattoo appeared visible in the mid transverse colon just to the left of midline. Next, 5 mm ports were then placed in the midline below the xiphoid, the right upper quadrant, and later in the left lower quadrant. The patient was placed in reverse Trendelenburg position and the rotated towards the right. The small bowel was swept out of the way. The abdomen was inspected thoroughly and there was no evidence of metastatic disease. Again we identified the tattoo which appeared to be in the mid transverse colon. She appeared to have quite a redundant transverse colon. Due to the location I elected to perform a transverse colectomy. We began by mobilizing the white line of Toldt along the descending colon from distal to proximal. We then mobilized the splenic flexure laparoscopically. A partial laparoscopic omentectomy was performed as we divided the omentum along the stomach. We then continued the dissection more proximally and mobilized the splenic flexure. There was some adhesions of the omentum and colon to the liver. Some of the white line of Toldt of the ascending colon was taken down as well. Once it appeared that we had mobilized the transverse colon adequately we decided to exteriorize. Laparoscopy was ceased and the infraumbilical incision was extended superiorly around the umbilicus for a total length of approximately 7 cm. The wound protector was placed within the wound after the fascia was opened and then the colon was exteriorized. The colon reached easily. The tumor was identified and caused a quite narrow stricture and was tattooed both proximally and distally. We chose a location 10 to 15 cm from the inked margins that would allow us an adequate lymphatic supply along with plenty of distance from the tumor itself. A window was created in the mesentery both proximally and distally and the colon was then divided using a purple loaded endoscopic JUDY stapler in the region of the proximal transverse colon. The mesentery was then divided using the hipolito zarateic scalpel. A high ligation of the middle colic artery was performed. This was ligated with 3-0 silk ties. Additional branches were ligated with silk ties. The specimen was excised and passed off the table. We then proceeded to create a [id number] functional end-to-end colocolic anastomosis. Towels were laid around the incision. The corners of the staple lines on the antimesenteric border of both the ascending and descending colon were excised creating enterotomies. A 60 mm purple loaded stapler was placed in each enterotomy and fired x2 to create the anastomosis. The prior staple lines were then completely excised using sequential firings of a purple loaded stapler. The staple line was then reinforced with 3-0 silk Lembert sutures. There was no evidence of a leak, and the anastomosis appeared patent. The mesenteric defect was closed with a running 2-0 Vicryl suture. Hemostasis appeared to be good and the anastomosis appeared to have no twist in it. The anastomosis was allowed to drop back into the abdomen. The GelPort was placed and the abdomen was reentered laparoscopically and hemostasis appeared good. The anastomosis appeared to lay well and appeared to have good blood supply. Laparoscopy was ceased and the periumbilical wound protector was removed. The abdomen was irrigated and hemostasis found to be good. The fascia and skin of the midline incision was injected with Exparel mixed with 0.5% Marcaine. The fascia was closed with a running 0 PDS suture x2. The wound was irrigated and the incision was then closed with interrupted 3-0 Vicryl deep dermal sutures followed by brandy. The remaining port sites were closed with brandy. Sterile dressings were placed. The patient was extubated in the operating room and taken to the PACU where she recovered without apparent incident. The Chavez catheter was removed. All sponge, instrument, and needle counts were correct. The patient tolerated the procedure well. The colon specimen was sent to Pathology. The physician's bookkeeper assistant was present and scrubbed for the entirety of the case. He was critical in positioning the patient, prepping and draping, retraction and exposure, driving the laparoscope, resection of the specimen and creation of the anastomosis, closure the incisions, and placement of the dressings. I attest to the content of the Intraoperative Record and any orders documented therein. Any exceptions are noted below.
--- NOTE | 2020-07-20 14:30 | Anesthesiology Progress Note ---
Date of Service July 20, 2020 Anesthesia Post Procedure Vital Signs Vital Signs: Temp Pulse Pulse Resp BP BP Pulse Ox 07/20/20 14:25 87 14 126/74 96 07/20/20 14:15 76 14 121/78 97 07/20/20 14:05 94 H 14 145/79 H 94 07/20/20 13:55 36.7 C 88 14 164/85 H 97 07/20/20 08:06 36.6 C 73 20 129/88 97 Transfer of Care Handoff Completed per policy Notes Mental Status: alert / awake / arousable and participated in evaluation Patient Amnestic to Procedure: Yes Nausea / Vomiting: adequately controlled Pain: adequately controlled Airway Patency, RR, SpO2: stable & adequate BP & HR: stable & adequate Hydration State: stable & adequate Anesthetic Complications: no major complications apparent and Pt Satisfied with anesthetic care Notes: Patient to be sent to floor with continuous pulse oximetry with supplemental oxygen.
[2020-07-20] MEDS ORDERED: ALBUTEROL HFA 8 GM INHALER INH PRN (15:07)
[2020-07-20] MEDS ORDERED: MoRPHine SULFATE 4 MG/ML 1 ML CARP\\VIAL IV PRN (15:07)
[2020-07-20] MEDS: LACTATED RINGER'S 1,000 ML IV SCH (16:34)
[2020-07-20] MEDS: ACETAMINOPHEN 1,000 MG/100 ML VIAL IV SCH (16:34)
[2020-07-20] MEDS: cefOXitin 2,000 MG in DEXTROSE 5% 50 ML IV SCH ×2 (17:02→22:59)
[2020-07-20] MEDS: MoRPHine SULFATE 2 MG/ML CARP IV PRN (21:04)
[2020-07-20] MEDS: CALCIUM CARBONATE 500 MG CHEWABLE TAB PO PRN (21:04)
[2020-07-21] MEDS: ACETAMINOPHEN 1,000 MG/100 ML VIAL IV SCH ×3 (00:32→17:06)
[2020-07-21] MEDS: CALCIUM CARBONATE 500 MG CHEWABLE TAB PO PRN ×2 (01:50→20:10)
[2020-07-21] MEDS: cefOXitin 2,000 MG in DEXTROSE 5% 50 ML IV SCH ×2 (04:19→10:56)
[2020-07-21] MEDS: LACTATED RINGER'S 1,000 ML IV SCH ×3 (04:19→20:56)
[2020-07-21] MEDS: MoRPHine SULFATE 2 MG/ML CARP IV PRN (04:24)
[2020-07-21] MEDS: LEVOTHYROXINE SODIUM 75 MCG TABLET PO SCH (06:08)
[2020-07-21 07:10] LABS: Basophils # (auto) 0.03 K/uL (0-0.2); Basophils % (auto) 0.3 %; Eosinophils # (auto) 0.21 K/uL (0-0.5); Eosinophils % (auto) 1.9 %; Hematocrit (blood only) 34.1 % (37-47); Hemoglobin 11.1 g/dL (12.0-16.0); Immature Granulocytes # (auto) 0.02 K/uL (0.00-0.02); Immature Granulocytes % (auto) 0.2 %; Lymphocytes # (auto) 2.45 K/uL (1.2-3.4); Lymphocytes % (auto) 22.1 %; Mean Corpuscular Hemoglobin 29.2 pg (25-34); Mean Corpuscular Hgb Conc 32.6 g/dL (32-36); Mean Corpuscular Volume 89.7 fL (80-100); Mean Platelet Volume 10.6 fL (7.4-10.4); Monocytes # (auto) 0.94 K/uL (0.11-0.59); Monocytes % (auto) 8.5 %; Neutrophils # (auto) 7.42 K/uL (1.4-6.5); Platelet Count 263 K/uL (130-400); RDW Coefficient of Variation 14.3 % (11.5-14.5); RDW Standard Deviation 47.2 fL (36.4-46.3); White Blood Count 11.07 K/uL (4.8-10.8)
[2020-07-21 07:45] LABS: BUN Creatinine Ratio 7.9 (10-20); Calcium 8.5 mg/dl (8.5-10.1); Creatinine Clr Calc Pharmacy 72.1 ml/min; Est GFR (African American) 77.5; Est GFR (Non-African American) 66.9; Potassium 3.7 mmol/L (3.5-5.1)
--- NOTE | 2020-07-21 08:03 | Surgery Progress Note ---
Date of Service July 21, 2020 Assessment & Plan (1) Colonic mass: POD#1 laparoscopic assisted transverse colectomy WBC 11, Cr: 0.94, VSS. Patient voiding without issues Will add Toradol prn to pain regimen in addition to Maalox prn for reflux symptoms Encourage incentive spirometry and OOB as tolerates today Continue on clear liquids for now Admission and Anticipated Discharge Date Admission Date: July 20, 2020 Supervising Physician Co-Signing Physician Notes Patient seen and examined, labs reviewed, agree with above. 59-year-old female POD #1 laparoscopic assisted transverse colectomy for colon cancer. Overall doing well, pain controlled, ambulating, copious urination. She is tolerating clear liquids but has not passed flatus yet. On exam she is afebrile with stable vitals. There is some strikethrough at her periumbilical incision along with some developing ecchymosis but no evidence of infection. Abdomen is soft, mildly distended, appropriately tender to palpation. Hematocrit with slight drop postop likely delusional, otherwise labs unremarkable. We will advance to full liquids, continue encouraging relation. Likely transition to oral pain meds tomorrow. On DVT prophylaxis. Subjective Patient states she had a rough night, voiced disappointment in parts of her care overnight. Aside from that she is tolerating clear liquids without nausea/vomiting. She is endorsing some reflux, of which she received some Tums overnight with relief. She does not like the sweeter clear liquid options, but will let nutrition services know today what is more appetizing to her. Her pain has been overall controlled, but it worsens when she coughs. She says the Tylenol has been helping her when she is able to receive it. She is voiding without issues. No flatus/BM yet. Physical Exam Physical Exam: awake/alert Constitutional: well developed and well nourished; no acute distress Respiratory: normal respiratory effort Gastrointestinal (Abdomen): Inspection/Auscultation: + abdominal surgical incision (dressings intact w tegaderm overtop, some shadowing marked on midline dsg.) Percussion/Palpation: + abdomen tender (some expected ttp joshua incisionally) and abdomen soft Results & Data ([facility]) Vital Signs (Past 12 Hours) Vital Signs Temp Pulse Pulse Resp BP Pulse Ox 07/21/20 07:42 36.6 C 57 L 16 137/75 98 07/21/20 03:05 36.6 C 78 16 115/60 95 07/20/20 22:05 36.6 C 71 19 122/75 94 PG Care Time/CCT Total # of Minutes Spent Total Time Spent with Patient: Total time spent is greater than 50% in coordination of care (as documented) at patient's floor/unit and/or counseling patient: Coding Level of Care Code None Diagnoses Colonic mass K63.89
[2020-07-21] MEDS: VENLAFAXINE HCL XR 150 MG CAPXR PO SCH (09:38)
[2020-07-21] MEDS: VENLAFAXINE HCL XR 75 MG CAPXR PO SCH (09:38)
[2020-07-21] MEDS: buPROPion SR 100 MG TABCR PO SCH (09:38)
[2020-07-21] MEDS: ENOXAPARIN INJ 40 MG/0.4 ML SYR SQ SCH (09:38)
[2020-07-21] MEDS: CHOLECALCIFEROL 1,000 UNITS 25 MCG TAB PO SCH (12:46)
[2020-07-21] MEDS: ALUMINUM/MAGNESIUM SUSP 30 ML UDC PO PRN ×2 (16:18→22:03)
[2020-07-21] MEDS: KETOROLAC TROMETHAMINE 15 MG/ML VIAL IV PRN (16:22)
[2020-07-21] MEDS ORDERED: Nursing to Pharmacy Communication SCH (21:15)
[2020-07-22] MEDS: ACETAMINOPHEN 1,000 MG/100 ML VIAL IV SCH ×2 (00:32→13:04)
[2020-07-22] MEDS ORDERED: COUGH DROP (SUGAR FREE) LOZ 24 LOZ/1 BOX BUCCAL ONE (04:53)
[2020-07-22] MEDS: LACTATED RINGER'S 1,000 ML IV SCH (04:54)
[2020-07-22] MEDS: LEVOTHYROXINE SODIUM 75 MCG TABLET PO SCH (04:55)
[2020-07-22 06:48] LABS: Basophils # (auto) 0.04 K/uL (0-0.2); Basophils % (auto) 0.5 %; Eosinophils # (auto) 0.55 K/uL (0-0.5); Eosinophils % (auto) 6.2 %; Hematocrit (blood only) 32.7 % (37-47); Hemoglobin 10.8 g/dL (12.0-16.0); Immature Granulocytes # (auto) 0.01 K/uL (0.00-0.02); Immature Granulocytes % (auto) 0.1 %; Lymphocytes # (auto) 1.91 K/uL (1.2-3.4); Lymphocytes % (auto) 21.7 %; Mean Corpuscular Hemoglobin 29.6 pg (25-34); Mean Corpuscular Volume 89.6 fL (80-100); Mean Platelet Volume 10.6 fL (7.4-10.4); Monocytes # (auto) 0.64 K/uL (0.11-0.59); Monocytes % (auto) 7.3 %; Neutrophils # (auto) 5.67 K/uL (1.4-6.5); Neutrophils % (auto) 64.2 %; Platelet Count 249 K/uL (130-400); RDW Coefficient of Variation 14.2 % (11.5-14.5); RDW Standard Deviation 46.6 fL (36.4-46.3); Red Blood Count 3.65 M/uL (4.2-5.4); White Blood Count 8.82 K/uL (4.8-10.8)
[2020-07-22] MEDS: KETOROLAC TROMETHAMINE 15 MG/ML VIAL IV PRN (07:01)
[2020-07-22 07:15] LABS: Calcium 8.8 mg/dl (8.5-10.1); Creatinine Clr Calc Pharmacy 101.2 ml/min; Est GFR (African American) 112.3; Est GFR (Non-African American) 96.9; Potassium 3.7 mmol/L (3.5-5.1)
[2020-07-22] MEDS: CHOLECALCIFEROL 1,000 UNITS 25 MCG TAB PO SCH (08:44)
[2020-07-22] MEDS: buPROPion SR 100 MG TABCR PO SCH (08:45)
[2020-07-22] MEDS: VENLAFAXINE HCL XR 150 MG CAPXR PO SCH (08:46)
[2020-07-22] MEDS: VENLAFAXINE HCL XR 75 MG CAPXR PO SCH (08:46)
[2020-07-22] MEDS: ENOXAPARIN INJ 40 MG/0.4 ML SYR SQ SCH (08:47)
--- NOTE | 2020-07-22 09:58 | Surgery Progress Note ---
Date of Service July 22, 2020 Assessment & Plan (1) Colonic mass: POD#2 laparoscopic assisted transverse colectomy Patient clinically doing well WBC: 8, Hb.8, Cr: 0.67, VSS She is tolerating a full liquid diet and starting to have + bowel function. Can trial advancing to low fiber today Will heplock IVF Patient reports she does not do well with most narcotics and prefers trying PO tylenol today. She has not require much IV narcotic postop Dressing change today Continue IS and out of bed ambulating Admission and Anticipated Discharge Date Admission Date: July 20, 2020 Supervising Physician Co-Signing Physician Notes Patient seen and examined, labs reviewed, agree with above. 59-year-old female POD #2 laparoscopic assisted transverse colectomy for colon cancer. Overall doing well, pain controlled, ambulating, copious urination. She tolerated full liquid yesterday and has had several loose bowel movements and is passing flatus. She is now on a low fiber diet and tolerating well. On exam she is afebrile with stable vitals. Abdomen soft, appropriately tender to palpation. Some ecchymosis around periumbilical incision, but otherwise no evidence of infection. Labs unremarkable. Continue low fiber diet, encourage ambulation. P.o. pain meds. Patient may shower. Possible discharge tomorrow morning. Subjective Patient states she is feeling well today. She has been tolerating a full liquid diet. Denies nausea/vomiting. Starting to pass flatus and had a couple loose BM's. Her pain has been well controlled with Tylenol and prn Toradol. She has been voiding adequate urine and ambulating the hallways. Physical Exam Physical Exam: awake/alert Constitutional: no acute distress Respiratory: normal respiratory effort Gastrointestinal (Abdomen): Inspection/Auscultation: + abdomen distended (slight) and + abdominal surgical incision (dressings c/d/i, no active drainage. some umbilical ecchymosis noted) Percussion/Palpation: abdomen soft Results & Data ([facility]) Vital Signs (Past 12 Hours) Vital Signs Temp Pulse Resp BP Pulse Ox 07/22/20 07:45 36.7 C 70 18 152/89 H 94 07/21/20 22:48 36.5 C 63 18 129/74 96 PG Care Time/CCT Total # of Minutes Spent Total Time Spent with Patient: Total time spent is greater than 50% in coordination of care (as documented) at patient's floor/unit and/or counseling patient: Coding Level of Care Code None Diagnoses Colonic mass K63.89
[2020-07-22] MEDS: ALUMINUM/MAGNESIUM SUSP 30 ML UDC PO PRN ×2 (13:38→21:39)
[2020-07-22] MEDS: ACETAMINOPHEN 325 MG TAB PO PRN ×2 (16:04→23:25)
[2020-07-23] MEDS: CALCIUM CARBONATE 500 MG CHEWABLE TAB PO PRN (01:04)
[2020-07-23] MEDS: LEVOTHYROXINE SODIUM 75 MCG TABLET PO SCH (05:46)
--- NOTE | 2020-07-23 06:22 | Surgery Progress Note ---
Date of Service July 23, 2020 Assessment & Plan (1) Adenomatous polyp of colon: Postoperative #3 transverse colectomy. Surgical pathology shows adenocarcinoma with stage T3N0. Will proceed in the following manner: Continue diet as tolerated Continue analgesics. The patient notes that she does not wish to be discharged home with any narcotics and Tylenol is sufficient for pain control Continue antiemetics Continue some senna spirometer Continue ambulation in the hallway Lovenox is in place for DVT prevention We will likely discharge home later today Admission and Anticipated Discharge Date Admission Date: July 20, 2020 Supervising Physician Co-Signing Physician Notes Patient seen and examined, agree with above. POD #3 laparoscopic assisted transverse colectomy. Doing well, tolerating low fiber diet, continues to have loose bowel movements but they are starting to get more solid. On exam she is afebrile with stable vitals. Abdomen soft, probably tender to palpation. Incisions with brandy. Resolving ecchymosis around periumbilical incision. Labs unremarkable. We did review her pathology which showed a T3 tumor with 0 lymph node involvement. We will plan to discharge her to home with follow-up with me in 10 to 14 days for staple removal. Return precautions given. Activity restrictions and wound care instructions reviewed. Subjective Patient is resting in bed and reports an uneventful night. She is tolerating solid food without worsening abdominal pain. She denies nausea or vomiting. She denies fevers, shakes, chills. She denies shortness of breath. She does note having a bowel movement since surgery. She is ambulated in the hallway since her surgery. Physical Exam Gastrointestinal (Abdomen): Abdomen is soft and nondistended with positive bowel sounds. All of her surgical incisions are clean dry and intact without signs of infection. There is minor pain with palpation near her incisions. There is no rebound tenderness or guarding. Results & Data ([facility]) Vital Signs (Past 12 Hours) Vital Signs Temp Pulse Resp BP Pulse Ox 07/22/20 23:08 36.5 C 71 14 148/87 H 95 PG Care Time/CCT Total # of Minutes Spent Total Time Spent with Patient: Total time spent is greater than 50% in coordination of care (as documented) at patient's floor/unit and/or counseling patient: Coding Level of Care Code None Diagnoses Adenomatous polyp of colon D12.6
[2020-07-23 06:47] LABS: Basophils # (auto) 0.04 K/uL (0-0.2); Basophils % (auto) 0.4 %; Eosinophils # (auto) 0.73 K/uL (0-0.5); Hematocrit (blood only) 34.4 % (37-47); Hemoglobin 11.5 g/dL (12.0-16.0); Immature Granulocytes # (auto) 0.02 K/uL (0.00-0.02); Immature Granulocytes % (auto) 0.2 %; Lymphocytes # (auto) 1.81 K/uL (1.2-3.4); Lymphocytes % (auto) 19.8 %; Mean Corpuscular Hemoglobin 29.6 pg (25-34); Mean Corpuscular Hgb Conc 33.4 g/dL (32-36); Mean Corpuscular Volume 88.7 fL (80-100); Mean Platelet Volume 10.6 fL (7.4-10.4); Monocytes # (auto) 0.67 K/uL (0.11-0.59); Monocytes % (auto) 7.3 %; Neutrophils # (auto) 5.88 K/uL (1.4-6.5); Neutrophils % (auto) 64.3 %; Platelet Count 281 K/uL (130-400); RDW Standard Deviation 45.5 fL (36.4-46.3); Red Blood Count 3.88 M/uL (4.2-5.4); White Blood Count 9.15 K/uL (4.8-10.8)
[2020-07-23 07:35] LABS: Creatinine Clr Calc Pharmacy 95.5 ml/min; Est GFR (African American) 108.8; Est GFR (Non-African American) 93.9; Potassium 3.4 mmol/L (3.5-5.1)
[2020-07-23] MEDS: CHOLECALCIFEROL 1,000 UNITS 25 MCG TAB PO SCH (08:43)
[2020-07-23] MEDS: VENLAFAXINE HCL XR 150 MG CAPXR PO SCH (08:43)
[2020-07-23] MEDS: ENOXAPARIN INJ 40 MG/0.4 ML SYR SQ SCH (08:43)
[2020-07-23] MEDS: VENLAFAXINE HCL XR 75 MG CAPXR PO SCH (08:43)
[2020-07-23] MEDS: buPROPion SR 100 MG TABCR PO SCH (08:43)
--- NOTE | 2020-07-26 11:43 | Discharge Summary ---
Date of Service July 26, 2020 Principal Diagnosis Adenocarcinoma of transverse colon Discharge Exam Gastrointestinal (Abdomen) Inspection/Auscultation: + abdominal surgical incision (clean, dry) Percussion/Palpation: abdomen soft Discharge Data Allergies Allergy/AdvReac Type Severity Reaction Status Date / Time bupropion [From Wellbutrin] Allergy Intermediate agressive Verified 07/20/20 08:00 with high dose ropinirole Allergy Mild weakness/na Verified 07/20/20 08:00 usea tramadol Allergy Mild Nausea Verified 07/20/20 08:00 celecoxib AdvReac Intermediate NAUSEA/BECOMES Verified 07/20/20 08:00 FLUSH/DIZZY codeine AdvReac Intermediate HALLUCINATI Verified 07/20/20 08:00 ONS naproxen AdvReac Intermediate UPSETS Verified 07/20/20 08:00 STOMACH hydrocodone AdvReac Unknown UPSETS Verified 07/20/20 08:00 STOMACH Procedures Performed Operation Date: 07/20/20 08:45 Actual Procedures p Laparoscopic Assisted Transversectomy, Laparoscopic Mobilization of Splenic Flexure, Partial Omentectomy(Not Applicable) - Luis Fernando Berger DO, FACS Hospital Course (1) Adenomatous polyp of colon: 59 y/o female with near obstructing mass of transverse colon was taken to the operating room for laparoscopic assisted resection with anastomosis. She was transferred to the surgical floor for postoperative care. She was able to tolerate advancing diet and had returning bowel function on post op day 2. By day three she was tolerating regular diet and oral analgesics and was stable for discharge. Total Time Total Time Spent Total Time Spent (In Minutes): 15 Discharge Plan Discharge Items Patient Disposition: Home - Self-Care Reason For Visit: Colon Tumor Discharge Diagnosis: laparoscopic transverse colectomy Activity: Per Instructions section Lifting: No more than 10 pounds Bathing Comment: may shower; no soaking in tubs/pools Exercise/Sports: Wait until after follow-up appointment Driving/Machine Use: Resume 3 days after discharge Non-emergency contact: Surgeon Call non-emergency contact if: you have any medication questions, your symptoms worsen, your pain is not controlled, your pain is worsening, your pain is concerning for you, you have a fever, your temperature is above 101.5, your wound has increased redness, your wound has increased drainage and your wound pain has increased Follow-up/Referrals: Jose Son MD [Primary Care Provider] - Luis Fernando Berger DO, FACS [Physician] - (Please call to schedule follow up in clinic within 1-2 weeks) Diet: Low Fiber Addtl Attending Provider Instructions: You may purchase Tylenol and/or Ibuprofen over the counter if needed for pain control Pending Studies at Discharge: Yes Studies:: surgical pathology Stand-Alone Forms: My [facility] Medications and DC Order Prescriptions: Continued albuterol sulfate [Ventolin HFA] 90 mcg/actuation HFA aerosol inhaler 2 puff INH Q4H PRN (Reason: shortness of breath or wheezing) Qty: 18 RF: 3 calcium carbonate-vitamin D3 [Calcium 600 + D(3)] 600 mg(1,500mg) -200 unit Tablet 1 tab PO QPM RF: 0 alendronate 70 mg tablet 70 mg PO WK RF: 0 venlafaxine 75 mg capsule,extended release 24hr 75 mg PO QAM RF: 0 venlafaxine 150 mg capsule,extended release 24hr 150 mg PO QAM RF: 0 bupropion HCl 100 mg tablet sustained-release 12 hr 100 mg PO QAM RF: 0 levothyroxine 75 mcg tablet 75 mcg PO QAM RF: 0 modafinil 100 mg tablet 100 mg PO QAM RF: 0 cholecalciferol (vitamin D3) 100 mcg (4,000 unit) capsule 100 mcg PO QAM RF: 0 Discontinued metronidazole [Flagyl] 500 mg tablet 500 mg PO TID Qty: 3 RF: 0 erythromycin 500 mg tablet 500 mg PO TID Qty: 3 RF: 0 Discharge Orders: Discharge Order (Routine); Ordered 07/23/20 Ordered By: Kiet Hoffman/Other Patient Handouts: Types of Colon Resections, Understanding Colon and Rectal Polyps Admission Data Admit Date/Time: 07/20/20 13:42 Attending Provider: Luis Fernando Berger Admit Provider: Maryann Ramsey Primary Care Provider: Jose Son Other Interventions: Discharge Summary Assessment (RN) Last Done: 07/23/20 09:27 Coding Level of Care Code D/C Day Management <30 mins Diagnoses Adenomatous polyp of colon D12.6
== END 2020-07-23 11:31 | disposition home or self-care (01) | DRG 331 ==
LOC: ASU 07:05 → 3N 13:42